=== PATIENT | female | born 1980 | race Caucasian/White ===

== ENCOUNTER 2024-04-29 15:48 | Inpatient (IN) | payer OTHER ==
[~2024-04-29] VITALS: Ht 33 cm; Wt 95.3 kg
[2024-04-29 11:25] VITALS: BP 155/97
[~2024-04-29 15:48] MED LIST: CLARITIN5 MG PO; INDERAL XL80 MG; PROAIR RESPICL90 MCG IH; TRELEGY ELLIPT1 EACH
[2024-05-02] MEDS ORDERED: CEFAZOLIN SODIUM 1,000 MG VIAL IV ONE (08:15)
[2024-05-02] MEDS ORDERED: POVIDONE-IODINE 118 ML BOTT TOP ONE (08:15)
[2024-05-02] MEDS ORDERED: SUGAMMADEX SODIUM 200 MG/2 ML VIAL IV ONE (10:30)
[2024-05-02] MEDS ORDERED: PROMETHAZINE HCL 50 MG/ML AMPUL IM PRN (11:15)
[2024-05-02] MEDS ORDERED: MEPERIDINE HCL/PF 50 MG/ML VIAL IM PRN (11:15)
[2024-05-02] MEDS ORDERED: CEFAZOLIN SODIUM 1,000 MG VIAL IV SCH (14:00)
[2024-05-02 14:20] VITALS: BP 142/78; O2SAT 97
[2024-05-02 16:00] VITALS: BP 163/89; O2SAT 96
[2024-05-03] MEDS ORDERED: OxyCODONE HCL/APAP UD (PERCOCET) PO PRN
[2024-05-03 00:14] VITALS: BP 147/79; O2SAT 95
[2024-05-03 08:25] VITALS: BP 166/95; O2SAT 96
[2024-05-03 08:26] LABS: HEMATOCRIT 36.1 % (36.0-45.00); MEAN CORPUSCULAR HEMOGLOBIN 28.6 pg (27.00-32.0); MEAN CORPUSCULAR HGB CONC 33.3 g/dl (32.0-36.0); PLATELET COUNT 317 K/uL (150-450); RED BLOOD COUNT 4.19 M/uL (4.00-6.00); RED CELL DISTRIBUTION WIDTH 13.2 % (11.5-14.5)
[2024-05-03 16:00] VITALS: BP 145/75; O2SAT 99
[2024-05-03] MEDS ORDERED: IBUprofen 600 MG TABLET PO PRN (20:45)
[2024-05-04 00:55] VITALS: BP 127/77; O2SAT 98
[2024-05-04 08:00] VITALS: BP 118/80; O2SAT 99
[2024-05-04 09:02] LABS: HEMATOCRIT 32.1 % (36.0-45.00); HEMOGLOBIN 10.9 g/dL (12.0-15.00); MEAN CELL VOLUME 86.8 fL (80.00-100.00); MEAN CORPUSCULAR HEMOGLOBIN 29.4 pg (27.00-32.0); MEAN CORPUSCULAR HGB CONC 33.9 g/dl (32.0-36.0); PLATELET COUNT 278 K/uL (150-450); RED CELL DISTRIBUTION WIDTH 12.9 % (11.5-14.5)
[2024-05-04 16:00] VITALS: BP 145/70; O2SAT 100
[2024-05-04] MEDS ORDERED: BISACODYL 10 MG/SUPP.RECT SUPP.RECT RECTAL STA (17:01)
[2024-05-05 00:29] VITALS: BP 123/72; O2SAT 98
[2024-05-05] MEDS ORDERED: IBUPROFEN800 MG PO (06:43)
== END 2024-05-05 09:28 | disposition home or self-care (01) | DRG 743 ==
LOC: O/R 05-02 05:08 → OB/GYN 05-02 07:00 → SURG 05-02 12:15
PROVIDERS: Obstetrics & Gynecology; ADMIT Specialist; ATTEND Specialist
PROC: 0UT90ZZ Resection of Uterus, Open Approach (ICD-10-PCS; principal; 2024-05-02 07:00)
DX: D25.1 Intramural leiomyoma of uterus (principal); D25.2 Subserosal leiomyoma of uterus; D25.0 Submucous leiomyoma of uterus; Z90.710 Acquired absence of both cervix and uterus; Z20.822 Contact with and (suspected) exposure to COVID-19; N80.03 Adenomyosis of the uterus